=== PATIENT | male | born 1975 | race Caucasian/White ===

== ENCOUNTER 2018-04-12 02:05 | Emergency (ER) | payer OTHER ==
[~2018-04-12] VITALS: Ht 170.2 cm; Wt 138.3 kg
--- NOTE | 2018-04-12 02:18 | ED.ADGEN ---
Adult General Chief Complaint Chief Complaint "... I rolled over in bed yesterday night.. and my Rt. nut started hurting.. it been hurting since yesterday.. but the pain is keeping me up tonight.. .. and my nut is more swollen on the right.. I got to checking on internet... and it said I have a testicle torsions... " HPI HPI Patient is a 42 year old male who presents with above hx and complaints right testicle epididymis edema and pain x 48 hrs. Pt. denies any trauma or dysuria. No hx of UTI. No hx. of STD.s. Has had less than 10 sexual partner in his life time. 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 Patient take supplemental meds for his hypopituitary. Patient normally follows Dr. Corral. No recent travel. No history immunosuppression. Review of Systems Review of Systems Constitutional: Denies fever or chills [] Eyes: Denies change in visual acuity, redness, or eye pain [] HENT: Denies nasal congestion or sore throat [] Respiratory: Denies cough or shortness of breath [] Cardiovascular: No additional information not addressed in HPI [] GI: Denies abdominal pain, nausea, vomiting, bloody stools or diarrhea [] : Denies dysuria or hematuria []Complaints of Rt. testicle epididymis edema and pain Musculoskeletal: Denies back pain or joint pain [] Integument: Denies rash or skin lesions [] Neurologic: Denies headache, focal weakness or sensory changes [] Endocrine: Denies polyuria or polydipsia [] All other systems were reviewed and found to be within normal limits, except as documented in this note. Family History Family History Noncontributory Current Medications Current Medications Current Medications Medications (Trade) Dose Ordered Sig/Vivi Start Time Stop Time Status Last Admin Dose Admin Azithromycin (Zithromax) 1,000 mg 1X ONCE 04/12/18 04:30 04/12/18 04:31 DC 04/12/18 04:30 1,000 MG Ceftriaxone Sodium (Rocephin Im) 1 gm 1X ONCE 04/12/18 04:30 04/12/18 04:31 DC 04/12/18 04:31 1 GM Lactated Ringer's 1,000 ml @ 1,000 mls/hr Q1H 04/12/18 02:25 04/12/18 04:17 DC 04/12/18 02:57 1,000 MLS/HR Metronidazole (Flagyl) 2,000 mg 1X ONCE 04/12/18 04:30 04/12/18 04:31 DC 04/12/18 04:31 2,000 MG Ondansetron HCl (Zofran Odt) 8 mg 1X ONCE 04/12/18 04:30 04/12/18 04:31 DC 04/12/18 04:29 8 MG Allergies Allergies Allergies Coded Allergies Type Severity Reaction Last Updated Verified No Known Allergies Allergy Unknown 04/12/18 Yes No known drug allergies Physical Exam Physical Exam Constitutional: Moderately acute distress, non-toxic appearance. [] HENT: Normocephalic, atraumatic, bilateral external ears normal, oropharynx moist, no oral exudates, nose normal. [] Eyes: PERRLA, EOMI, conjunctiva normal, no discharge. [] Neck: Normal range of motion, no tenderness, supple, no stridor. [] Cardiovascular:Heart rate regular rhythm, no murmur [] Lungs & Thorax: Bilateral breath sounds clear to auscultation [] Abdomen: Bowel sounds normal, soft, no tenderness, no masses, no pulsatile masses. Obese. Some mild tenderness in right lower quadrant of the abdomen. Right testicle epididymis is swollen and tender. Focal area of discomfort appears to be localized to right epididymis. Circumcised male. No discharge. Skin: Warm, dry, no erythema, no rash. [] Back: No tenderness, no CVA tenderness. [] Extremities: No tenderness, no cyanosis, no clubbing, ROM intact, no edema. [] Neurologic: Alert and oriented X 3, normal motor function, normal sensory function, no focal deficits noted. [] Psychologic: Affect anxious, judgement normal, mood normal. [] Current Patient Data Vital Signs Vital Signs Date Time Temp Pulse Resp B/P (MAP) Pulse Ox O2 Delivery O2 Flow Rate FiO2 04/12/18 04:34 75 156/86 (109) 95 04/12/18 02:13 98.5 22 Room Air Lab Results Laboratory Tests Test 04/12/18 02:52 04/12/18 04:11 White Blood Count 12.1 x10^3/uL (4.0-11.0) H Red Blood Count 5.02 x10^6/uL (4.30-5.70) Hemoglobin 14.3 g/dL (13.0-17.5) Hematocrit 43.5 % (39.0-53.0) Mean Corpuscular Volume 87 fL (79-100) Mean Corpuscular Hemoglobin 29 pg (25-35) Mean Corpuscular Hemoglobin Concent 33 g/dL (31-37) Red Cell Distribution Width 14.9 % (11.5-14.5) H Platelet Count 292 x10^3/uL (140-400) Neutrophils (%) (Auto) 75 % (31-73) H Lymphocytes (%) (Auto) 17 % (24-48) L Monocytes (%) (Auto) 6 % (0-9) Eosinophils (%) (Auto) 1 % (0-3) Basophils (%) (Auto) 1 % (0-3) Neutrophils # (Auto) 9.1 x10^3uL (1.8-7.7) H Lymphocytes # (Auto) 2.1 x10^3/uL (1.0-4.8) Monocytes # (Auto) 0.7 x10^3/uL (0.0-1.1) Eosinophils # (Auto) 0.1 x10^3/uL (0.0-0.7) Basophils # (Auto) 0.1 x10^3/uL (0.0-0.2) Prothrombin Time 9.9 SEC (9.4-11.4) Prothrombin Time INR 1.0 (0.9-1.1) PTT 25 SEC (23-33) Sodium Level 142 mmol/L (136-145) Potassium Level 3.5 mmol/L (3.5-5.1) Chloride Level 104 mmol/L (98-107) Carbon Dioxide Level 29 mmol/L (21-32) Anion Gap 9 (6-14) Blood Urea Nitrogen 23 mg/dL (8-26) Creatinine 1.3 mg/dL (0.7-1.3) Estimated GFR (Cockcroft-Gault) 60.8 Glucose Level 167 mg/dL (70-99) H Calcium Level 9.3 mg/dL (8.5-10.1) Urine Collection Type Void Urine Color Yellow Urine Clarity Cloudy Urine pH 5.5 Urine Specific [place] 1.025 Urine Protein 30 mg/dl (NEG-TRACE) Urine Glucose (UA) Neg mg/dL (NEG) Urine Ketones (Stick) Neg mg/dL (NEG) Urine Blood Mod (NEG) Urine Nitrite Neg (NEG) Urine Bilirubin Neg (NEG) Urine Urobilinogen Dipstick 0.2 mg/dL (0.2 mg/dL) Urine Leukocyte Esterase Large (NEG) Urine RBC 3-5 /HPF (0-2) Urine WBC >40 /HPF (0-4) Urine Squamous Epithelial Cells Occ /LPF Urine Bacteria Few /HPF (0-FEW) Urine Opiates Screen Neg (NEG) Urine Methadone Screen Neg (NEG) Urine Barbiturates Neg (NEG) Urine Phencyclidine Screen Neg (NEG) Urine Amphetamine/Methamphetamine Neg (NEG) Urine Benzodiazepines Screen Neg (NEG) Urine Cocaine Screen Neg (NEG) Urine Cannabinoids Screen Neg (NEG) Urine Ethyl Alcohol Neg (NEG) EKG EKG [] Radiology/Procedures Radiology/Procedures US= enlarged hyperemic epididymis, bilateral hydrocele. []See formal report. Course & Med Decision Making Course & Med Decision Making Pertinent Labs and Imaging studies reviewed. (See chart for details). Patient follow-up primary care. Patient to take doxycycline 100 bid daily x10 days. . Follow-up labs and a pending cultures primary care. Follow-up with urology. Return if any concerns. Tylenol and ibuprofen for pain. For marked pain may take Vicoprofen up 4 times a day. [] Final Impression Final Impression 1. Right testicle pain/edema[ x 48 hrs.] 2. Rt. epididymitis 3. Mild Leukocytosis- 12,1 4. DM = 167 5. History of hypoparathyroidism Dragon Disclaimer Dragon Disclaimer This electronic medical record was generated, in whole or in part, using a voice recognition dictation system. Dragon Disclaimer This chart was dictated in whole or in part using Voice Recognition software in a busy, high-work load, and often noisy Emergency Department environment. It may contain unintended and wholly unrecognized errors or omissions. Discharge Summary Visit Information Final Diagnosis Problems Medical Problems: (1) Epididymitis Status: Acute Brief Hospital Course Allergies Allergies Coded Allergies Type Severity Reaction Last Updated Verified No Known Allergies Allergy Unknown 04/12/18 Yes Vital Signs Vital Signs Date Time Temp Pulse Resp B/P (MAP) Pulse Ox O2 Delivery O2 Flow Rate FiO2 04/12/18 04:34 75 156/86 (109) 95 04/12/18 02:13 98.5 22 Room Air Lab Results Laboratory Tests Test 04/12/18 02:52 04/12/18 04:11 White Blood Count 12.1 x10^3/uL (4.0-11.0) Red Blood Count 5.02 x10^6/uL (4.30-5.70) Hemoglobin 14.3 g/dL (13.0-17.5) Hematocrit 43.5 % (39.0-53.0) Mean Corpuscular Volume 87 fL (79-100) Mean Corpuscular Hemoglobin 29 pg (25-35) Mean Corpuscular Hemoglobin Concent 33 g/dL (31-37) Red Cell Distribution Width 14.9 % (11.5-14.5) Platelet Count 292 x10^3/uL (140-400) Neutrophils (%) (Auto) 75 % (31-73) Lymphocytes (%) (Auto) 17 % (24-48) Monocytes (%) (Auto) 6 % (0-9) Eosinophils (%) (Auto) 1 % (0-3) Basophils (%) (Auto) 1 % (0-3) Neutrophils # (Auto) 9.1 x10^3uL (1.8-7.7) Lymphocytes # (Auto) 2.1 x10^3/uL (1.0-4.8) Monocytes # (Auto) 0.7 x10^3/uL (0.0-1.1) Eosinophils # (Auto) 0.1 x10^3/uL (0.0-0.7) Basophils # (Auto) 0.1 x10^3/uL (0.0-0.2) Prothrombin Time 9.9 SEC (9.4-11.4) Prothromb Time International Ratio 1.0 (0.9-1.1) Activated Partial Thromboplast Time 25 SEC (23-33) Sodium Level 142 mmol/L (136-145) Potassium Level 3.5 mmol/L (3.5-5.1) Chloride Level 104 mmol/L (98-107) Carbon Dioxide Level 29 mmol/L (21-32) Anion Gap 9 (6-14) Blood Urea Nitrogen 23 mg/dL (8-26) Creatinine 1.3 mg/dL (0.7-1.3) Estimated GFR (Cockcroft-Gault) 60.8 Glucose Level 167 mg/dL (70-99) Calcium Level 9.3 mg/dL (8.5-10.1) Urine Collection Type Void Urine Color Yellow Urine Clarity Cloudy Urine pH 5.5 Urine Specific [place] 1.025 Urine Protein 30 mg/dl (NEG-TRACE) Urine Glucose (UA) Neg mg/dL (NEG) Urine Ketones (Stick) Neg mg/dL (NEG) Urine Blood Mod (NEG) Urine Nitrite Neg (NEG) Urine Bilirubin Neg (NEG) Urine Urobilinogen Dipstick 0.2 mg/dL (0.2 mg/dL) Urine Leukocyte Esterase Large (NEG) Urine RBC 3-5 /HPF (0-2) Urine WBC >40 /HPF (0-4) Urine Squamous Epithelial Cells Occ /LPF Urine Bacteria Few /HPF (0-FEW) Urine Opiates Screen Neg (NEG) Urine Methadone Screen Neg (NEG) Urine Barbiturates Neg (NEG) Urine Phencyclidine Screen Neg (NEG) Urine Amphetamine/Methamphetamine Neg (NEG) Urine Benzodiazepines Screen Neg (NEG) Urine Cocaine Screen Neg (NEG) Urine Cannabinoids Screen Neg (NEG) Urine Ethyl Alcohol Neg (NEG) Brief Hospital Course Mr. Toledo is a 42 old male who presented with Rt epididymitis. Ultrasound localizes findings to right epididymis. Patient discharge follow-up urology. Treated with Rocephin, Flagyl and his Zithromax. Received prescription for doxycycline 100 twice a day. With followup Dr. Sim -urology [phone]. Discharge Information Condition at Discharge: Improved, Stable Disposition/Orders: D/C to Home Dischare Medications Current Medications Lactated Ringer's 1,000 ml @ 1,000 mls/hr Q1H IV Last administered on at 02:57; Admin Dose 1,000 MLS/HR; Start 04/12/18 at 02:25; Stop 04/12/18 at 04: 17; Status DC Ceftriaxone Sodium (Rocephin Im) 1 gm 1X ONCE IM Last administered on at 04:31; Admin Dose 1 GM; Start 04/12/18 at 04:30; Stop 04/12/18 at 04:31; Status DC Metronidazole (Flagyl) 2,000 mg 1X ONCE PO Last administered on 04/12/18at 04:31 ; Admin Dose 2,000 MG; Start 04/12/18 at 04:30; Stop 04/12/18 at 04:31; Status DC Ondansetron HCl (Zofran Odt) 8 mg 1X ONCE PO Last administered on 04/12/18at 04: 29; Admin Dose 8 MG; Start 04/12/18 at 04:30; Stop 04/12/18 at 04:31; Status DC Azithromycin (Zithromax) 1,000 mg 1X ONCE PO Last administered on 04/12/18at 04: 30; Admin Dose 1,000 MG; Start 04/12/18 at 04:30; Stop 04/12/18 at 04:31; Status DC Active Scripts Active Hydrocodone-Ibuprofen 7.5-200 (Hydrocodone/Ibuprofen) 1 Each Tablet 1 Tab PO PRN Q6HRS PRN Doxycycline Hyclate 100 Mg Tablet. 1 Tab PO BID JASSON ZABALA MD Apr 12, 2018 02:18
[2018-04-12] MEDS ORDERED: IV RINGERS SOLUTION,LACTATED 1,000 ML IV SCH (02:25)
[2018-04-12 03:11] LABS: BASO # 0.1 x10^3/uL (0.0-0.2); BASO % 1 % (0-3); EOS # 0.1 x10^3/uL (0.0-0.7); EOS % 1 % (0-3); HEMATOCRIT 43.5 % (39.0-53.0); HEMOGLOBIN 14.3 g/dL (13.0-17.5); LYMPH # 2.1 x10^3/uL (1.0-4.8); LYMPH % 17 % (24-48); MEAN CORPUSCULAR HEMOGLOBIN 29 pg (25-35); MEAN CORPUSCULAR HGB CONC 33 g/dL (31-37); MEAN CORPUSCULAR VOLUME 87 fL (79-100); MONO # 0.7 x10^3/uL (0.0-1.1); MONO % 6 % (0-9); NEUT # 9.1 x10^3uL (1.8-7.7); NEUT % 75 % (31-73); PLATELET COUNT 292 x10^3/uL (140-400); RED BLOOD COUNT 5.02 x10^6/uL (4.30-5.70); RED CELL DISTRIBUTION WIDTH 14.9 % (11.5-14.5); WHITE BLOOD COUNT 12.1 x10^3/uL (4.0-11.0)
[2018-04-12 03:27] LABS: CALCIUM 9.3 mg/dL (8.5-10.1); CREATININE 1.3 mg/dL (0.7-1.3); GFR 60.8
[2018-04-12 04:05] LABS: POTASSIUM 3.5 mmol/L (3.5-5.1)
[2018-04-12] MEDS ORDERED: DOXY100T9 PO (04:09)
[2018-04-12] MEDS ORDERED: HYDR-1179 PO (04:09)
--- NOTE | 2018-04-12 04:10 | RAD ---
Scrotal ultrasound: Reason for examination: Right scrotal pain and swelling for 24 hours. Scrotal ultrasound was performed. The right testicle measures 3 x 2.4 cm in greatest dimension. There is tubular ectasia of the right rete testes. The right epididymis is enlarged and shows increased vascularity and heterogeneous echogenicity. Appearance is consistent with epididymitis. There is a right varicocele. Moderate sized right hydrocele is present. The left testicle measures 3 x 2.3 cm in greatest dimension and shows normal vascularity and no focal lesions. The left epididymis head is normal in size at 6.4 mm and shows a 4 mm cyst in the epididymal head. A small left hydrocele is present. IMPRESSION: Bilateral hydroceles, right greater than left. Enlarged heterogeneous right epididymis with increased vascularity consistent with epididymitis. Right varicocele. Small 4 mm cyst in the left epididymal head. Electronically signed by: Melia Collier MD (04/12/2018 4:06 AM) [id number]
[2018-04-12] MEDS ORDERED: cefTRIAXone IM 1 GM VIAL IM ONE (04:30)
[2018-04-12] MEDS ORDERED: AZITHROMYCIN 250 MG TABLET. PO ONE (04:30)
[2018-04-12] MEDS ORDERED: metroNIDAZOLE 500 MG TABLET PO ONE (04:30)
[2018-04-12] MEDS ORDERED: ONDANSETRON ODT 4 MG TAB.RAPDIS PO ONE (04:30)
[2018-04-12 04:34] VITALS: BP 156/86
[2018-04-12 04:34] LABS: BARBITURATES NEG (NEG); BENZODIAZEPINES NEG (NEG); CANNABINOIDS NEG (NEG); COCAINE NEG (NEG); METHADONE NEG (NEG); OPIATES NEG (NEG); PHENCYCLIDINE NEG (NEG)
[2018-04-12 04:35] LABS: AMPHETAMINE/METHAMPHETAMINE NEG (NEG)
[2018-04-12 04:40] LABS: BILIRUBIN,URINE NEG (NEG); CLARITY,URINE CLOUDY; COLOR,URINE YELLOW; GLUCOSE,URINE NEG (NEG); NITRITE,URINE NEG (NEG); UROBILINOGEN,URINE 0.2 mg/dL (0.2 mg/dL)
[2018-04-12 04:41] LABS: BACTERIA,URINE FEW /HPF (0-FEW); SQUAMOUS EPITHELIAL CELL,UR OCC /LPF; WBC,URINE >40 /HPF (0-4)
== END 2018-04-12 04:53 | disposition home or self-care (01) ==
LOC: ER 02:05
DX: N45.1 Epididymitis (principal); N43.3 Hydrocele, unspecified; D72.829 Elevated white blood cell count, unspecified; E11.9 Type 2 diabetes mellitus without complications; E20.9 Hypoparathyroidism, unspecified
CPT/HCPCS: 36415; 76870; 80048; 80307; 81001; 85025; 85610; 85730; 87086; 96372; 99284; J0456; J0696; J7120; Q0162